=== PATIENT | female | born 1950 | race Caucasian/White ===

== ENCOUNTER 2018-08-30 11:12 | Emergency (ER) | payer MEDICARE, OTHER, SELFPAY ==
[2018-08-30 11:15] VITALS: BP 116/67; PULSE 78; RESP 19; TEMP 36.3; O2SAT 96; BMI 37.9
--- NOTE | 2018-08-30 11:39 | EKG12_ITS ---
Test Reason : PALPITATIONS Blood Pressure : / mmHG Vent. Rate : 082 BPM Atrial Rate : 082 BPM P-R Int : 192 ms QRS Dur : 080 ms QT Int : 422 ms P-R-T Axes : 058 -08 025 degrees QTc Int : 493 ms Sinus rhythm with occasional Premature ventricular complexes and Premature atrial complexes Septal infarct , age undetermined Abnormal ECG Confirmed by CORRY SARMIENTO, TESS ([id number]), story editor DASHA CROCKETT ([id number]) on 09/01/2018 9:19:52 AM Referred By: GREG Confirmed By:TESS WHEATLEY MD
--- NOTE | 2018-08-30 11:48 | NURSING ---
NO OLD EKG TO OBTAIN.
[2018-08-30 11:54] LABS: Absolute Lymphocyte Count 2.05 X10^3/ul (0.83-4.51); Absolute Neutrophil Count 3.6 X10^3/uL (2.0-7.7); Basophil# 0.01 X10^3/uL; Basophil% 0.2 % (0-1); Eosinophil# 0.17 X10^3/uL; Eosinophils% 2.7 % (0-5); Hematocrit 38.8 % (37-47); Hemoglobin 12.5 g/dl (12.0-15.0); Lymphocyte # 2.05 X10^3/ul (4.0); Lymphocyte % 32.4 % (19-41); Mean Corp Hgb Conc 32.2 g/gl (32-36); Mean Corpuscular Hgb 30.3 pg (27.0-32.0); Mean Corpuscular Volume 94.2 fL (81-99); Mean Platelet Vol. 9.4 fl (6.2-12.0); Monocyte# 0.48 X10^3/uL; Monocyte% 7.6 % (0-10); Neutrophil # 3.61 X10^3/uL (2.7-7.7); Neutrophil % 56.9 % (47-70); Platelet Count 205 K/mm3 (150-450); RBC Distribution Width CV 15.5 % (11.6-14.6); RBC Distribution Width SD 52.9 fl (35.1-43.9); Red Blood Count 4.12 M/mm3 (4.2-5.4); White Blood Count 6.3 K/mm3 (4.4-11.0)
[2018-08-30 11:55] LABS: POSITIVE COUNT NO; POSITIVE DIFFERENTIAL NO; POSITIVE MORPHOLOGY NO
--- NOTE | 2018-08-30 11:55 | RAD_ITS ---
STUDY: X-RAY CHEST REASON FOR EXAM: Female, 67 years old. Chest pain. TECHNIQUE: Single AP portable view of the chest. COMPARISON: None. FINDINGS: EKG electrodes are seen. Hyperinflation. Blunting of the left costophrenic angle. There is mild cardiac enlargement. Normal mediastinum and barbie. Normal visualized pulmonary arteries. There is atherosclerotic tortuosity of the aortic arch and descending thoracic aorta. There are diffuse degenerative changes of the visualized thoracic spine. Normal visualized ribs, clavicles, and shoulders. There is no demonstrated abnormality of the visualized soft tissue structures of the upper abdomen. RAD/Chest 1 View (Portable) IMPRESSION: Hyperinflation. Blunting of the left costophrenic angle. Electronically Signed: Hosea Meza, at 12:22 EDT , Service support ,
[2018-08-30 12:12] VITALS: BP 127/61; PULSE 73; RESP 17; O2SAT 96
[2018-08-30 12:15] LABS: Anion Gap 5 (5-15); BUN 16 mg/dL (7-18); BUN/Creat Ratio 17.8 RATIO (10-20); Calcium,Total 9.1 mg/dL (8.5-10.1); Chloride 104 mmol/L (98-107); EST Glomerular Filtration Rate 67 mL/min (>60); Est Glom Filt Rate - Afr Amer 81 mL/min (>60); Estimated Creatinine Clearance 58.34 ml/min; Glucose 109 mg/dL (74-106); Potassium 4.4 mmol/L (3.5-5.1); Sodium Level 136 mmol/L (136-145); Thyroid Stim Hormone (TSH) 1.18 uIU/mL (0.358-3.74)
--- NOTE | 2018-08-30 12:44 | ED.DCSUM_ITS ---
- ER Visit Summary Date of Service: 08/30/18 Chief Complaint: Palpitations History of Present Illness: The patient is a [address] Hopkins. She reports that she has palpitations began last night approximately 5 PM. She describes this as skipping a beat every fifth or sixth beat. She denies any chest pain. She does report that she has mild shortness of breath. No nausea, vomiting, diaphoresis. States she had similar symptoms previously with her mitral valve prolapse. Physical Examination: Vitals: Stable. Afebrile. General: Well-nourished and well-developed. Head: Normocephalic atraumatic. Neck: Supple, no lymphadenopathy. No JVD. Nontender. Cardiovascular: Regular rate and rhythm. No murmurs. Respiratory: No respiratory distress. Clear to auscultation bilaterally. Abdominal: Soft, nontender, nondistended, normal bowel sounds. No guarding, rebound, or peritoneal signs. Back: Nontender. Extremities: Nontender, no edema. Skin: Normal color, no rash. Neurologic: Alert and oriented ?3. Cranial nerves II through XII are intact. Normal strength and sensation. Psych: Normal affect. Test Results: EKG is sinus at 82 with a single PVC and no acute changes. There is no old EKG for comparison. Troponin is negative. Chem-7 shows a glucose of 109. CBC is normal. TSH is normal. Chest x-ray shows no acute disease. Emergency Department Course and Treatment: On monitor in the emergency departm ent patient is having approximately 10 PVCs per minute. Her pressure is stable. Treatment Plan: Patient will be discharged instructions to avoid caffeine. Follow-up her primary care physician 1 to 2 days if not improving. Return to the emergency department for any worsening symptoms. Disposition: To home in improved and stable condition. Impression: 1. PVCs. This note was generated with [employer] software. It may contain incorrect words, spelling, and punctuation that were not noted in review of the chart prior to signing ED Disposition - Plan for ED Patient: Disposition: Home or Assisted Living Instructions: Premature Ventricular Contractions Referrals: Doctor,Your [STAFF PHYSICIAN] - 1-2 Days if not improving
[2018-08-30 12:55] VITALS: BP 143/67; PULSE 73; RESP 18; O2SAT 98
== END 2018-08-30 13:04 | disposition home or self-care (01) ==
LOC: ED 12:15
PROVIDERS: Emergency Provider Emergency Medicine; Family Provider Internal Medicine; PCP Internal Medicine
DX: I49.3 Ventricular premature depolarization (principal); E11.9 Type 2 diabetes mellitus without complications; Z86.79 Personal history of other diseases of the circulatory system; Z79.899 Other long term (current) drug therapy; Z87.891 Personal history of nicotine dependence
CPT/HCPCS: 71045; 80048; 84443; 84484; 85025; 93005; 99284; A4216